=== PATIENT | male | born 1970 | race Two or more races ===

== ENCOUNTER 2023-12-18 12:32 | Inpatient (IN) | payer OTHER ==
[~2023-12-18] VITALS: Ht 177.8 cm; Wt 106.4 kg
[2023-12-18] MEDS: IV NS 0.9% 1,000 ML BAG IV ONE ×2 (13:40→16:00)
[2023-12-18 13:44] LABS: BASOPHILS % (AUTO) 0.4 % (0.0-2.0); EOSINOPHILS # (AUTO) 0.1 K/uL (0.0-0.7); EOSINOPHILS % (AUTO) 1.5 % (0.0-6.0); HEMATOCRIT 50 % (39-51); HEMOGLOBIN 16.9 g/dL (13.5-17.5); LYMPHOCYTES % (AUTO) 11.1 % (20.0-44.0); MEAN CORPUSCULAR HEMOGLOBIN 33 PG (26.0-33.0); MEAN CORPUSCULAR HGB CONC 34 g/dl (31.0-36.0); MEAN CORPUSCULAR VOLUME 96 fL (80-96); MONOCYTES # (AUTO) 0.6 K/uL (0.1-1.30); MONOCYTES % (AUTO) 6.1 % (2.0-12.0); NEUTROPHILS # (AUTO) 7.5 K/uL (1.8-8.9); NEUTROPHILS % (AUTO) 80.9 % (43.0-81.0); PLATELET COUNT (AUTO) 140 K/uL (150-450); RED BLOOD CELL COUNT(AUTO) 5.18 MIL/uL (4.5-6.0); RED CELL DISTRIBUTION WIDTH 14.6 % (11.5-15.0); WHITE BLOOD COUNT (AUTO) 9.2 K/uL (4.3-11.0)
[2023-12-18] MEDS ORDERED: PANTOPRAZOLE 40 MG VIAL ONE (13:45)
[2023-12-18] MEDS ORDERED: MORPHINE SULFATE INJ 4 MG/ML DISP.SYRIN ONE ×2 (13:46→16:26)
[2023-12-18] MEDS ORDERED: FAMOTIDINE/PF INJ 20 MG/2 ML VIAL IV ONE (13:46)
[2023-12-18] MEDS: FAMOTIDINE/PF INJ 20 MG/2 ML VIAL IV ONE (13:52)
[2023-12-18] MEDS: PANTOPRAZOLE 40 MG VIAL IV ONE (13:53)
[2023-12-18] MEDS: MORPHINE SULFATE INJ 2 MG/ML DISP.SYRIN IV ONE ×2 (13:55→16:29)
[2023-12-18 14:01] LABS: LACTIC ACID 2.7 mmol/L (0.4-2.0)
[2023-12-18 14:04] LABS: CALCIUM, SERUM 9.2 mg/dL (8.5-10.1); CARBON DIOXIDE 30 mmol/L (21-32); CHLORIDE 98 mmol/L (98-107); CREATININE 1.1 mg/dL (0.6-1.3); GLUCOSE 148 mg/dL (74-106); POTASSIUM 3.4 mmol/L (3.5-5.1); SODIUM SERUM 136 mmol/L (136-145); UREA NITROGEN, BLOOD 14 mg/dL (7-18)
[2023-12-18 14:08] LABS: ALANINE AMINOTRANSFERASE 125 U/L (12-78); ALBUMIN 4.2 g/dL (3.4-5.0); ALKALINE PHOSPHATASE 54 U/L (46-116); ASPARTATE AMINOTRANSFERASE 72 U/L (15-37); BILIRUBIN,DIRECT 0.3 mg/dL (0.0-0.2); BILIRUBIN,TOTAL 1.4 mg/dL (0.2-1.0)
[2023-12-18 14:09] LABS: LIPASE > 375 U/L (16-77)
[2023-12-18] MEDS ORDERED: IV D5 LR 1,000 ML IV ONE (15:00)
[2023-12-18] MEDS ORDERED: METO-357 PO (15:55)
[2023-12-18] MEDS ORDERED: CLON2TAB11 PO (15:55)
[2023-12-18] MEDS ORDERED: MELO-107 PO (15:55)
[2023-12-18] MEDS ORDERED: BUPR300T52 PO (15:55)
[2023-12-18] MEDS ORDERED: ATOR40TA PO (15:55)
[2023-12-18] MEDS ORDERED: LITH300T3 PO (15:55)
[2023-12-18] MEDS ORDERED: LAMO100T17 PO (15:55)
[2023-12-18] MEDS ORDERED: Z GUARD REMEDY 4 OZ OINT TP PRN (17:00)
[2023-12-18] MEDS ORDERED: ZOLPIDEM TARTRATE 5 MG TABLET PO PRN (17:00)
[2023-12-18] MEDS ORDERED: ACETAMINOPHEN 325 MG TABLET PO PRN (17:00)
[2023-12-18] MEDS ORDERED: MAG HYDROX/AL HYDROX/SIMETH 30 ML UDC PO PRN (17:00)
[2023-12-18] MEDS: MORPHINE SULFATE INJ 4 MG/ML DISP.SYRIN IV PRN (18:09)
[2023-12-18] MEDS: ONDANSETRON HCL/PF 4 MG/2 ML VIAL IVP PRN (18:10)
[2023-12-18] MEDS: IV 1/2NS 1000 ML 1,000 ML IV PRN (19:56)
[2023-12-18] MEDS: HYDROCODONE/APAP 10/325MG TABLET PO PRN (20:07)
[2023-12-18 20:35] VITALS: BP 144/90; TEMP 98.1; O2SAT 94
[2023-12-19 06:35] LABS: BASOPHILS % (AUTO) 0.4 % (0.0-2.0); EOSINOPHILS # (AUTO) 0.1 K/uL (0.0-0.7); EOSINOPHILS % (AUTO) 2.4 % (0.0-6.0); HEMATOCRIT 43 % (39-51); HEMOGLOBIN 14.7 g/dL (13.5-17.5); LYMPHOCYTES # (AUTO) 1.1 K/uL (0.8-4.8); LYMPHOCYTES % (AUTO) 18.2 % (20.0-44.0); MEAN CORPUSCULAR HEMOGLOBIN 34 PG (26.0-33.0); MEAN CORPUSCULAR HGB CONC 34 g/dl (31.0-36.0); MEAN CORPUSCULAR VOLUME 98 fL (80-96); MONOCYTES # (AUTO) 0.5 K/uL (0.1-1.30); MONOCYTES % (AUTO) 8.4 % (2.0-12.0); NEUTROPHILS # (AUTO) 4.3 K/uL (1.8-8.9); NEUTROPHILS % (AUTO) 70.6 % (43.0-81.0); PLATELET COUNT (AUTO) 91 K/uL (150-450); RED BLOOD CELL COUNT(AUTO) 4.36 MIL/uL (4.5-6.0); RED CELL DISTRIBUTION WIDTH 14.8 % (11.5-15.0); WHITE BLOOD COUNT (AUTO) 6.1 K/uL (4.3-11.0)
[2023-12-19 06:42] LABS: BILIRUBIN,DIRECT 0.3 mg/dL (0.0-0.2); BILIRUBIN,TOTAL 1.1 mg/dL (0.2-1.0); CALCIUM, SERUM 8.1 mg/dL (8.5-10.1); CREATININE 0.9 mg/dL (0.6-1.3); POTASSIUM 3.2 mmol/L (3.5-5.1); TOTAL PROTEIN, SERUM 6.5 g/dL (6.4-8.2)
[2023-12-19 08:30] VITALS: BP 127/80; TEMP 98.4; O2SAT 98
[2023-12-19 08:50] VITALS: BP 151/105; TEMP 98.4; O2SAT 92
[2023-12-19] MEDS: LamoTRIgine 100 MG TABLET PO SCH (08:59)
[2023-12-19] MEDS: LITHIUM CARBONATE 150 MG CAPSULE PO SCH (08:59)
[2023-12-19] MEDS: BUPROPION XL 150 MG TAB.ER.24 PO SCH (08:59)
[2023-12-19] MEDS: clonazePAM 1 MG TABLET PO SCH (08:59)
[2023-12-19] MEDS: MELOXICAM 7.5 MG TABLET PO SCH (08:59)
[2023-12-19] MEDS: PANTOPRAZOLE 40 MG VIAL IV SCH (08:59)
[2023-12-19] MEDS: METOPROLOL SUCCINATE 50 MG TAB.SR.24H PO SCH (09:00)
[2023-12-19 09:47] LABS: ANISOCYTOSIS 1+; BASOPHILS % (MANUAL) 0 % (0.0-2.0); EOSINOPHILS % (MANUAL) 2 % (0-4); LYMPHOCYTES % (MANUAL) 13 % (16-48); MONOCYTES % (MANUAL) 4 % (0-11.0); NEUTROPHILS % (MANUAL) 81 (42-76); PLATELET ESTIMATE DECREASED
[2023-12-19] MEDS: POTASSIUM CL. PREMIX PERIPHER. 50 ML IV SCH (10:17)
[2023-12-19] MEDS: POTASSIUM CHLORIDE 20 MEQ TAB.PRT.SR PO ONE (12:12)
[2023-12-19] MEDS: HYDROCODONE/APAP 10/325MG TABLET PO PRN (12:15)
[2023-12-19 16:00] VITALS: BP 148/106; TEMP 98.2; O2SAT 97
[2023-12-19 20:00] VITALS: BP 151/85; TEMP 98.4; O2SAT 90
[2023-12-20 07:50] LABS: BASOPHILS % (AUTO) 0.4 % (0.0-2.0); EOSINOPHILS # (AUTO) 0.1 K/uL (0.0-0.7); EOSINOPHILS % (AUTO) 2.1 % (0.0-6.0); HEMATOCRIT 42 % (39-51); HEMOGLOBIN 13.7 g/dL (13.5-17.5); LYMPHOCYTES # (AUTO) 1.4 K/uL (0.8-4.8); MEAN CORPUSCULAR HEMOGLOBIN 33 PG (26.0-33.0); MEAN CORPUSCULAR HGB CONC 33 g/dl (31.0-36.0); MEAN CORPUSCULAR VOLUME 99 fL (80-96); MONOCYTES # (AUTO) 0.4 K/uL (0.1-1.30); MONOCYTES % (AUTO) 8.4 % (2.0-12.0); NEUTROPHILS # (AUTO) 3.3 K/uL (1.8-8.9); NEUTROPHILS % (AUTO) 63.1 % (43.0-81.0); PLATELET COUNT (AUTO) 86 K/uL (150-450); RED BLOOD CELL COUNT(AUTO) 4.19 MIL/uL (4.5-6.0); RED CELL DISTRIBUTION WIDTH 14.5 % (11.5-15.0); WHITE BLOOD COUNT (AUTO) 5.2 K/uL (4.3-11.0)
[2023-12-20 08:00] VITALS: BP 175/113; TEMP 99.3; O2SAT 96
[2023-12-20 08:00] LABS: ALBUMIN 2.9 g/dL (3.4-5.0); BILIRUBIN,DIRECT 0.3 mg/dL (0.0-0.2); BILIRUBIN,TOTAL 1.2 mg/dL (0.2-1.0); TOTAL PROTEIN, SERUM 6.5 g/dL (6.4-8.2)
[2023-12-20 08:01] LABS: CALCIUM, SERUM 8.7 mg/dL (8.5-10.1); CREATININE 1.2 mg/dL (0.6-1.3); MAGNESIUM 1.8 mg/dL (1.8-2.4); PHOSPHORUS 2.6 mg/dL (2.5-4.9); POTASSIUM 3.7 mmol/L (3.5-5.1)
[2023-12-20 08:32] VITALS: BP 175/113
[2023-12-20 09:00] VITALS: BP 165/100
[2023-12-20 10:00] VITALS: BP 155/100
[2023-12-20 11:44] LABS: EOSINOPHILS % (MANUAL) 2 % (0-4); LYMPHOCYTES % (MANUAL) 26 % (16-48); MONOCYTES % (MANUAL) 8 % (0-11.0); NEUTROPHILS % (MANUAL) 64 (42-76); PLATELET ESTIMATE DECREASED
[2023-12-20 11:45] LABS: ANISOCYTOSIS 1+
[2023-12-20 16:00] VITALS: BP 155/107; TEMP 98.7; O2SAT 96
[2023-12-20] MEDS: MAGNESIUM HYDROXIDE 30 ML UDC PO PRN (16:12)
[2023-12-20 20:00] VITALS: BP 170/110; TEMP 97.9; O2SAT 96
[2023-12-20] MEDS: hydrALAZINE HCL IV 20 MG VIAL IV PRN (23:05)
[2023-12-21 04:00] VITALS: BP 161/109; TEMP 98.1; O2SAT 99
[2023-12-21 07:42] LABS: BASOPHILS % (AUTO) 0.3 % (0.0-2.0); EOSINOPHILS # (AUTO) 0.1 K/uL (0.0-0.7); EOSINOPHILS % (AUTO) 2.9 % (0.0-6.0); HEMATOCRIT 42 % (39-51); HEMOGLOBIN 14.4 g/dL (13.5-17.5); LYMPHOCYTES # (AUTO) 1.2 K/uL (0.8-4.8); LYMPHOCYTES % (AUTO) 26.4 % (20.0-44.0); MEAN CORPUSCULAR HEMOGLOBIN 33 PG (26.0-33.0); MEAN CORPUSCULAR HGB CONC 34 g/dl (31.0-36.0); MEAN CORPUSCULAR VOLUME 98 fL (80-96); MONOCYTES # (AUTO) 0.4 K/uL (0.1-1.30); MONOCYTES % (AUTO) 8.9 % (2.0-12.0); NEUTROPHILS # (AUTO) 2.8 K/uL (1.8-8.9); NEUTROPHILS % (AUTO) 61.5 % (43.0-81.0); PLATELET COUNT (AUTO) 108 K/uL (150-450); RED CELL DISTRIBUTION WIDTH 14.7 % (11.5-15.0); WHITE BLOOD COUNT (AUTO) 4.5 K/uL (4.3-11.0)
[2023-12-21 07:58] LABS: ALBUMIN 3.2 g/dL (3.4-5.0); BILIRUBIN,DIRECT 0.3 mg/dL (0.0-0.2); TOTAL PROTEIN, SERUM 7.1 g/dL (6.4-8.2)
[2023-12-21 07:59] LABS: CALCIUM, SERUM 9.2 mg/dL (8.5-10.1); CREATININE 1.2 mg/dL (0.6-1.3); MAGNESIUM 2.1 mg/dL (1.8-2.4); PHOSPHORUS 2.8 mg/dL (2.5-4.9); POTASSIUM 3.3 mmol/L (3.5-5.1)
[2023-12-21] MEDS: PANTOPRAZOLE 40 MG TABLET.DR PO SCH (08:38)
[2023-12-21 09:40] VITALS: BP 142/96
[2023-12-21] MEDS: POTASSIUM CHLORIDE 20 MEQ TAB.PRT.SR PO ONE (10:52)
[2023-12-21] MEDS: MORPHINE SULFATE INJ 2 MG/ML DISP.SYRIN IM PRN (16:48)
== END 2023-12-21 19:00 | disposition left against medical advice (07) | DRG 282 ==
LOC: ER 12:40 → MED 16:31
PROVIDERS: ADMIT Student in an Organized Health Care Education/Training Program; ATTEND Student in an Organized Health Care Education/Training Program
DX: K85.90 Acute pancreatitis without necrosis or infection, unspecified (principal); D69.6 Thrombocytopenia, unspecified; E87.20 Acidosis, unspecified; E44.0 Moderate protein-calorie malnutrition; E88.09 Other disorders of plasma-protein metabolism, not elsewhere classified; E87.6 Hypokalemia; R74.01 Elevation of levels of liver transaminase levels; I10 Essential (primary) hypertension; E78.5 Hyperlipidemia, unspecified; K82.8 Other specified diseases of gallbladder; K76.0 Fatty (change of) liver, not elsewhere classified; Z68.33 Body mass index [BMI] 33.0-33.9, adult
CPT/HCPCS: 36415; 74181-TC; 76700-TC; 80048-TC; 80061-TC; 80076-TC; 83605-TC; 83690-TC; 83735-TC; 84100-TC; 85025-TC; A4223; G0378; J0360; J2270; J2405; J2470; J3480; J3490; J7030; J7050

== ENCOUNTER 2023-12-22 05:54 | Emergency (ER) | payer OTHER ==
[~2023-12-22] VITALS: Ht 177.8 cm; Wt 99.8 kg
[~2023-12-22 05:54] MED LIST: ATOR40TA PO; BUPR300T52 PO; CLON2TAB11 PO; LAMO100T17 PO; LITH300T3 PO; MELO-107 PO; METO-357 PO
[2023-12-22 06:36] LABS: BASOPHILS % (AUTO) 0.4 % (0.0-2.0); EOSINOPHILS # (AUTO) 0.1 K/uL (0.0-0.7); HEMATOCRIT 42 % (39-51); HEMOGLOBIN 14.3 g/dL (13.5-17.5); LYMPHOCYTES # (AUTO) 0.8 K/uL (0.8-4.8); LYMPHOCYTES % (AUTO) 16.7 % (20.0-44.0); MEAN CORPUSCULAR HEMOGLOBIN 33 PG (26.0-33.0); MEAN CORPUSCULAR HGB CONC 34 g/dl (31.0-36.0); MEAN CORPUSCULAR VOLUME 98 fL (80-96); MONOCYTES # (AUTO) 0.4 K/uL (0.1-1.30); MONOCYTES % (AUTO) 8.8 % (2.0-12.0); NEUTROPHILS # (AUTO) 3.4 K/uL (1.8-8.9); NEUTROPHILS % (AUTO) 71.1 % (43.0-81.0); PLATELET COUNT (AUTO) 128 K/uL (150-450); RED BLOOD CELL COUNT(AUTO) 4.31 MIL/uL (4.5-6.0); RED CELL DISTRIBUTION WIDTH 14.7 % (11.5-15.0); WHITE BLOOD COUNT (AUTO) 4.8 K/uL (4.3-11.0)
[2023-12-22 06:58] LABS: ALBUMIN 3.3 g/dL (3.4-5.0); BILIRUBIN,DIRECT 0.4 mg/dL (0.0-0.2); BILIRUBIN,TOTAL 1.2 mg/dL (0.2-1.0); CREATININE 1.1 mg/dL (0.6-1.3); POTASSIUM 3.8 mmol/L (3.5-5.1); TOTAL PROTEIN, SERUM 7.1 g/dL (6.4-8.2)
[2023-12-22 07:21] VITALS: BP 155/99; TEMP 98; O2SAT 96
== END 2023-12-22 07:21 | disposition home or self-care (01) ==
LOC: ER 05:55
DX: K85.90 Acute pancreatitis without necrosis or infection, unspecified (principal); Z60.2 Problems related to living alone
CPT/HCPCS: 36415; 80048-TC; 80076-TC; 83690-TC; 85025-TC